=== PATIENT | female | born 1990 | race Caucasian/White ===

== ENCOUNTER 2017-01-18 12:16 | Emergency (ER) | payer SELFPAY ==
[~2017-01-18] VITALS: Ht 167.6 cm; Wt 100.0 kg
[2017-01-18 12:20] VITALS: BP 128/74; PULSE 79; TEMP 99
[2017-01-18] MEDS ORDERED: OMNICEF 300MG300 MG PO (12:23)
[2017-01-18] MEDS ORDERED: AMBIEN 5MG TABLE5 MG PO (12:23)
[2017-01-18] MEDS ORDERED: MINIPRESS2 MG PO (12:23)
[2017-01-18] MEDS ORDERED: LITHIUM 60600 MG/CAP PO (12:23)
[2017-01-18] MEDS ORDERED: LEXAPRO20 MG PO (12:24)
== END 2017-01-18 14:58 | disposition home or self-care (01) ==
LOC: COL.ER 12:16
DX: G43.909 Migraine, unspecified, not intractable, without status migrainosus (principal); F31.9 Bipolar disorder, unspecified; F41.9 Anxiety disorder, unspecified; F17.200 Nicotine dependence, unspecified, uncomplicated; Z87.42 Personal history of other diseases of the female genital tract
CPT/HCPCS: J1885; J2550; J7030